=== PATIENT | male | born 1975 | race African-American/Black ===

== ENCOUNTER 2024-01-19 16:56 | Emergency (ER) | payer MEDICAID ==
[~2024-01-19] VITALS: Ht 172.7 cm; Wt 75.0 kg
[2024-01-19 16:59] VITALS: BP 173/90; PULSE 88; RESP 18; TEMP 98.7; O2SAT 98
[2024-01-19] MEDS: IBUPROFEN 600MG TABLET PO ONE (19:03)
== END 2024-01-19 19:03 | disposition home or self-care (01) ==
LOC: ER 16:56
DX: T63.301A Toxic effect of unspecified spider venom, accidental (unintentional), initial encounter (principal); Y92.9 Unspecified place or not applicable
CPT/HCPCS: 99283

== ENCOUNTER 2024-09-05 14:30 | Inpatient (IN) | payer MEDICAID ==
[~2024-09-05] VITALS: Ht 175.3 cm; Wt 126.1 kg
[2024-09-05] MEDS: SODIUM CHLORIDE 0.9% 1,000 ML IV ONE (15:42)
[2024-09-05 16:00] LABS: BASOPHILS % 0.9 % (0.0-2.0); EOSINOPHILS % 5.6 % (0.0-5.0); HEMATOCRIT. 40.6 % (42.0-52.0); HEMOGLOBIN. 13.7 g/dL (14.0-18.0); LYMPHOCYTES % 31.4 % (20.0-50.0); MEAN CORPUSCULAR HEMOGLOBIN 27.6 pg (28.0-32.0); MEAN CORPUSCULAR HGB CONC 33.8 g/dL (31.0-37.0); MEAN CORPUSCULAR VOLUME 81.8 fL (80.0-94.0); MEAN PLATELET VOLUME 10.6 fl (7.4-10.4); MONOCYTES % 6.9 % (2.0-8.0); NEUTROPHILS % 55.2 % (40.0-76.0); PLATELET 183 x1000/uL (130-400); RED BLOOD CELL COUNT 4.97 mill/uL (4.7-6.1); RED CELL DISTRIBUTION WIDTH 14.3 % (11.6-14.6); WHITE BLOOD COUNT 7.6 x1000/uL (4.5-11.0)
[2024-09-05 16:14] LABS: CHLORIDE 101 mEq/L (98-107); SODIUM 139 mEq/L (136-145)
[2024-09-05 16:15] LABS: CALCIUM 8.9 mg/dL (8.7-10.4); CARBON DIOXIDE 30 mEq/L (21-32)
[2024-09-05 16:20] LABS: UREA NITROGEN BLOOD 15 mg/dL (9-23)
[2024-09-05 16:22] LABS: ALANINE AMINOTRANSFERASE 40 IU/L (10-49); ALBUMIN 4.1 g/dL (3.2-4.8); ASPARTATE AMINOTRANSFERASE 26 IU/L (<34); BETA HYDROXYBUTYRATE 0.1 mMol/L (0.0-0.3); BILIRUBIN DIRECT < 0.1 mg/dL (<=3.0); BILIRUBIN TOTAL 0.2 mg/dL (0.1-1.0); PROTEIN TOTAL 6.3 g/dL (6.0-8.3)
[2024-09-05 16:32] LABS: GLUCOSE 490 mg/dL (70-105)
[2024-09-05 16:36] LABS: CLARITY URINE CLEAR (CLEAR); COLOR URINE YELLOW (YELLOW); GLUCOSE URINE 3+ (NEGATIVE); KETONES URINE NEGATIVE (NEGATIVE); LEUKOCYTE ESTERASE URINE NEGATIVE (NEGATIVE); NITRITE URINE NEGATIVE (NEGATIVE); OCCULT BLOOD URINE NEGATIVE (NEGATIVE); PH URINE 6.5 (4.5-8.0); PROTEIN URINE NEGATIVE (NEGATIVE); SPECIFIC GRAVITY URINE 1.033 (1.005-1.030)
[2024-09-05 16:46] LABS: RBC URINE NONE SEEN /hpf (0-2); SQUAMOUS EPITHELIAL CELL URINE NONE SEEN /lpf (RARE/1+); WBC URINE 0-2 /hpf (0-2)
[2024-09-05 16:47] LABS: BACTERIA URINE TRACE
[2024-09-05 16:52] LABS: *AMPHETAMINES SCREEN URINE NEGATIVE (NEGATIVE); *BARBITURATES SCREEN URINE NEGATIVE (NEGATIVE); *BENZODIAZEPINES SCREEN URINE NEGATIVE (NEGATIVE); *COCAINE SCREEN URINE NEGATIVE (NEGATIVE); CANNABINOID URINE SCREEN NEGATIVE (NEGATIVE); ECSTASY MDMA SCREEN URINE NEGATIVE (NEGATIVE); METHADONE URINE SCREEN NEGATIVE (NEGATIVE); OPIATES URINE SCREEN NEGATIVE (NEGATIVE); PHENCYCLIDINE URINE SCREEN NEGATIVE (NEGATIVE)
[2024-09-05] MEDS: INSULIN REGULAR (HUMULIN R) 1000UNITS/10ML VIAL SUBCUT ONE (17:54)
[2024-09-05 18:25] VITALS: BP 136/93; PULSE 76; RESP 18; TEMP 36.7; O2SAT 94
[2024-09-05 20:00] VITALS: BP_SYST 136; BP_SYST 177; BP_DIAS 93; PULSE 72; PULSE 76; RESP 18; TEMP 36.7; O2SAT 95
[2024-09-05] MEDS ORDERED: DOCUSATE SODIUM 100MG CAPSULE PO PRN (20:00)
[2024-09-05] MEDS ORDERED: IPRATROPIUM/ALBUTEROL 0.5-3(2.5)MG/3ML NEB HHN PRN (20:00)
[2024-09-05] MEDS ORDERED: DEXTROSE 50% WATER 50ML SYRINGE IV PRN (20:00)
[2024-09-05] MEDS ORDERED: ACETAMINOPHEN 325MG TABLET PO PRN ×2 (20:00)
[2024-09-05] MEDS ORDERED: GUAIFENESIN 200MG/10ML SUGAR FREE UDC PO PRN (20:00)
[2024-09-05] MEDS ORDERED: ONDANSETRON HCL 4MG/2ML INJ IV PRN (20:00)
[2024-09-05] MEDS: BLOOD SUGAR DIAGNOSTIC STRIP TEST SCH (21:00)
[2024-09-05] MEDS: PANTOPRAZOLE 40MG DR TABLET PO SCH (22:01)
[2024-09-05] MEDS: ENOXAPARIN 30MG/0.3ML SYR SUBCUT SCH (22:03)
[2024-09-05] MEDS: SODIUM CHLORIDE 0.9% 1,000 ML IV SCH (22:04)
[2024-09-05] MEDS: CLONIDINE 0.1MG TABLET PO PRN (22:25)
[2024-09-05] MEDS: INSULIN LISPRO 100 UNITS/ML SUBCUT SCH (22:39)
[2024-09-06] VITALS: BP 144/97; PULSE 65; RESP 18; TEMP 37; O2SAT 97
[2024-09-06] MEDS ORDERED: DYR5 MT (01:50)
[2024-09-06] MEDS ORDERED: BUPR1FIL3 SL (01:50)
[2024-09-06] MEDS ORDERED: LISI40TA13 MT (01:50)
[2024-09-06] MEDS ORDERED: CITA20TA19 MT (01:50)
[2024-09-06] MEDS ORDERED: QUET300T2 MT (01:50)
[2024-09-06] MEDS ORDERED: DOCU-405 MT (01:50)
[2024-09-06] MEDS ORDERED: GABA-290 MT (01:50)
[2024-09-06] MEDS ORDERED: ROSU40TA MT (01:50)
[2024-09-06] MEDS ORDERED: AMLO10TA80 MT (01:50)
[2024-09-06 04:00] VITALS: BP 146/104; PULSE 66; RESP 18; TEMP 36.9; O2SAT 96
[2024-09-06 06:46] LABS: BASOPHILS % 0.8 % (0.0-2.0); EOSINOPHILS % 5.3 % (0.0-5.0); HEMATOCRIT. 39.9 % (42.0-52.0); HEMOGLOBIN. 13.3 g/dL (14.0-18.0); LYMPHOCYTES % 36.4 % (20.0-50.0); MEAN CORPUSCULAR HEMOGLOBIN 26.8 pg (28.0-32.0); MEAN CORPUSCULAR HGB CONC 33.3 g/dL (31.0-37.0); MEAN CORPUSCULAR VOLUME 80.4 fL (80.0-94.0); MEAN PLATELET VOLUME 10.5 fl (7.4-10.4); MONOCYTES % 7.4 % (2.0-8.0); NEUTROPHILS % 50.1 % (40.0-76.0); PLATELET 168 x1000/uL (130-400); RED BLOOD CELL COUNT 4.96 mill/uL (4.7-6.1); RED CELL DISTRIBUTION WIDTH 14.5 % (11.6-14.6); WHITE BLOOD COUNT 8.3 x1000/uL (4.5-11.0)
[2024-09-06 06:59] LABS: CARBON DIOXIDE 28 mEq/L (21-32); CHLORIDE 104 mEq/L (98-107); POTASSIUM 3.7 mEq/L (3.5-5.1); SODIUM 142 mEq/L (136-145)
[2024-09-06 07:00] LABS: CALCIUM 8.3 mg/dL (8.7-10.4)
[2024-09-06 07:04] LABS: CREATININE 0.8 mg/dL (0.6-1.3)
[2024-09-06 07:05] LABS: CHOLESTEROL 118 mg/dL (<200); TRIGLYCERIDE 194 mg/dL (0-150); UREA NITROGEN BLOOD 13 mg/dL (9-23)
[2024-09-06 07:06] LABS: LDL CHOLESTEROL 71 mg/dL (5-100)
[2024-09-06 07:07] LABS: HDL CHOLESTEROL 25 mg/dL (>55); THYROID STIMULATING HORMONE 2.85 uIU/mL (0.55-4.78)
[2024-09-06 07:16] LABS: GLUCOSE 232 mg/dL (70-105)
[2024-09-06 08:00] VITALS: BP 146/95; PULSE 55; RESP 19; TEMP 36.4; O2SAT 96
[2024-09-06] MEDS: CLONIDINE 0.2MG TABLET PO SCH (09:00)
[2024-09-06] MEDS: AMLODIPINE 10MG TABLET PO SCH (09:28)
[2024-09-06] MEDS: INSULIN GLARGINE 100 UNITS/ML SUBCUT SCH (10:36)
[2024-09-06 12:00] VITALS: BP 134/89; PULSE 59; RESP 19; TEMP 36.3; O2SAT 96
[2024-09-06 16:00] VITALS: BP 142/78; PULSE 60; RESP 20; TEMP 36.7; O2SAT 97
[2024-09-06] MEDS: BUPRENORPHINE 8MG SL TABLET SL SCH (18:43)
[2024-09-06] MEDS: METFORMIN HCL 500MG TABLET PO SCH (18:43)
[2024-09-06 20:00] VITALS: BP 150/96; PULSE 68; RESP 19; TEMP 36.8; O2SAT 96
[2024-09-06] MEDS: ATORVASTATIN CALCIUM 40MG TABLET PO SCH (21:50)
[2024-09-06] MEDS: QUETIAPINE FUMARATE 50MG TABLET PO SCH (21:50)
[2024-09-07] VITALS: BP 127/88; PULSE 63; RESP 19; TEMP 36.8; O2SAT 98
[2024-09-07 08:00] VITALS: BP 132/89; PULSE 65; RESP 20; TEMP 36.5; O2SAT 97
[2024-09-07] MEDS: CALCIUM 1250MG TABLET (500MG ELEMENTAL CALCIUM) PO SCH (08:22)
[2024-09-07] MEDS: INSULIN GLARGINE 100 UNITS/ML SUBCUT SCH (10:59)
[2024-09-07] MEDS ORDERED: LANTUSUD SUBCUT (11:55)
[2024-09-07] MEDS ORDERED: METF-817 PO (11:55)
[2024-09-07] MEDS ORDERED: SITA50TA3 PO (11:55)
[2024-09-07 12:00] VITALS: BP 129/81; PULSE 60; RESP 20; TEMP 36.2; O2SAT 98
[2024-09-07] MEDS ORDERED: ASPI-1497 PO (13:30)
[2024-09-07 14:03] VITALS: BP 129/83; PULSE 63; TEMP 97; O2SAT 98
[2024-09-07 16:00] VITALS: BP 128/83; PULSE 63; RESP 20; TEMP 36.6
[2024-09-07] MEDS ORDERED: INSU100I28 SQ (16:39)
== END 2024-09-07 16:40 | disposition home or self-care (01) | DRG 420 ==
LOC: ER 14:30 → EDBEDREQTM 17:13 → EDBEDREQ 17:13 → 6EST 18:25
PROVIDERS: ADMIT Internal Medicine; ATTEND Internal Medicine
DX: E11.65 Type 2 diabetes mellitus with hyperglycemia (principal); E66.01 Morbid (severe) obesity due to excess calories; I10 Essential (primary) hypertension; F17.210 Nicotine dependence, cigarettes, uncomplicated; Z68.41 Body mass index [BMI] 40.0-44.9, adult
CPT/HCPCS: 36415; 80048; 80061; 80076; 80305; 81003; 82010; 82962; 83036; 84439; 84443; 85025; 93970; 99285; J1650; J1815; J7030